=== PATIENT | female | born 1995 | race Caucasian/White ===

== ENCOUNTER 2021-01-13 15:08 | Emergency (ER) | payer SELFPAY | END 2021-01-13 16:45 | disposition home or self-care (01) | LOC: CSHERS 15:08 | DX: S46.911A Strain of unspecified muscle, fascia and tendon at shoulder and upper arm level, right arm, initial encounter (principal); F17.210 Nicotine dependence, cigarettes, uncomplicated; X58.XXXA Exposure to other specified factors, initial encounter ==

== ENCOUNTER 2022-07-07 10:40 | Emergency (ER) | payer SELFPAY | END 2022-07-07 20:51 | disposition home or self-care (01) | LOC: CSHERS 10:40 | DX: R21 Rash and other nonspecific skin eruption (principal); F17.210 Nicotine dependence, cigarettes, uncomplicated | CPT/HCPCS: 99282 ==